=== PATIENT | female | born 1935 | race Caucasian/White ===

== ENCOUNTER 2016-12-20 00:31 | Inpatient (IN) | payer MEDICARE, OTHER ==
[~2016-12-20] VITALS: Ht 149.9 cm; Wt 48.3 kg
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
--- NOTE | ~2016-12-20 | DS ---
Discharge Summary [id number] [facility] [place]. [address] NAME: TATA LOZANO : 37 STATUS : DIS IN PAT#: [id number] AGE: 81 ADM/REG DATE : 12/20/16 MR#: [id number] REPORT SERV DATE: 12/26/16 DICTATED BY: HILDA BANKS DATE: 12/25/16 REPORT STATUS : Draft TRANSCRIBED BY: FRANCISCO DATE: 12/25/16 ADMISSION DATE: 12/20/2016 DISCHARGE DATE: 12/25/2016 DIAGNOSES: 1. Acute encephalopathy, resolved. 2. Parkinson's exacerbation, resolved. 3. Dehydration. 4. Hyponatremia. 5. Acute left lower extremity deep venous thrombosis. 6. Dysphagia. 7. Aspiration pneumonitis. 8. Hypertension. FOLLOWUP: 1. The patient will be followed with home health and to have INR levels on 12/27/2016 and 12/29/2016, to be sent to her primary care's office and then INR q. week thereafter. Her goal INR is 2 to 3. Also, the patient is to follow up with her primary care, Dr. Cavazos, in [place] in one week for her acute DVT. 2. The patient is continue with aspiration precautions. DIET: Pureed diet with honey-thickened liquids. DISCHARGE MEDICATIONS: 1. Xanax 0.5 mg p.o. q.h.s. 2. Sinemet 25/100 one tab p.o. three times a day. 3. Prilosec 20 mg p.o. daily. 4. Paxil 20 mg p.o. daily. 5. Neupro 4 mg topical patch daily. 6. Warfarin 5 mg p.o. daily on Sunday, Sunday, Sunday, Sunday, and Sunday, and 7.5 mg p.o. daily on Sunday and . 7. Albuterol MDI two puffs inhaled q.4 hours p.r.n. 8. Pravachol 40 mg p.o. q.h.s. 9. Percocet 10/25 one-half tab p.o. q.6 hours p.r.n. per home dose. 10.Lasix 40 mg p.o. daily p.r.n. 11.Potassium chloride 10 mEq p.o. daily p.r.n. with Lasix. 12.Ferrous sulfate 300 mg p.o. b.i.d. 13.Zyrtec 10 mg p.o. daily p.r.n. per home dose. 14.Multivitamin p.o. daily. 15.Docusate sodium 100 mg p.o. b.i.d. 16.Imdur ER 30 mg p.o. daily, hold for systolic blood pressure less than 140 and to check blood pressure prior to each dosing. IMAGIN. Venous Doppler ultrasound with a partial occlusive thrombus within the left common femoral vein, proximal and mid left femoral vein, left popliteal vein, as well as one Discharge Summary [address] [place]. [address] NAME: TATA LOZANO : 37 STATUS : DIS IN PAT#: [id number] AGE: 81 ADM/REG DATE : 12/20/16 MR#: [id number] REPORT SERV DATE: 12/26/16 DICTATED BY: HILDA BANKS DATE: 12/25/16 REPORT STATUS : Draft TRANSCRIBED BY: FRANCISCO DATE: 12/25/16 of the left peroneal veins of the proximal left calf. Findings likely represent acute on chronic thrombus given the appearance. There is no right lower extremity venous thrombus appreciated. 2. CT of the brain without contrast showing stable moderate atrophy. Evidence for old deep white matter ischemic changes. No acute infarct nor bleed seen. There is a small bubble of air along the lateral aspect of the right orbit identified adjacent to the ciliary body probably a benign trapped bubble of air. 3. Venous Doppler ultrasound of the right upper extremity negative for DVT. HOSPITAL COURSE: Please see H and P dictated by Dr. Pamela Noble. This is an 81-year-old female with a past medical history of dementia and advanced Parkinson's and hypertension, recently discharged from the hospital on 12/14/2016, for which the patient had a post- mechanical fall at home and had an acute left hip fracture at that time and required surgery and [facility]. However, while at the rehab, according to the daughter, the rehab facility missed some of the patient's Parkinson's medications and the daughter noted changes in her mother's clinical response and became more unresponsive, not eating and drinking well and less alert, also the patient eventually spiked a fever of 101, and the patient was transferred to [facility] ER for altered mental status, dehydration, and possible aspiration pneumonia versus pneumonitis. She was initiated on IV antibiotics, and her Parkinson's medications were re-initiated with high risk aspiration precautions. She was seen by Speech Therapy who recommended a pureed diet and honey-thickened liquids for which the patient had tolerated. She was treated for aspiration pneumonitis. Her chest x-rays did not reveal any pneumonia. Also, blood cultures were no growth to date at the time of discharge. Also, due to asymmetric edema, the patient had a venous Doppler ultrasound ordered with findings of acute DVT of the left lower extremity. She was continued on heparin and her Coumadin also was continued. At the time of discharge, INR was at 2.9. The daughter was updated daily and fully aware of the patient's management as well as the recommendations for home. Also, the daughter states that she did not want the patient to be discharged to a rehab facility, but to be discharged back to home with Home Health and also the family will take care of the patient 30/10. At the time of discharge, the patient was back at her baseline functional capacity, alert, responsive, and conversating. She was discharged to home in stable condition to follow up as an outpatient. Please note, the daughter was educated that the patient will require INR management as an outpatient by her primary care indication. This discharge required greater than 30 minutes. [facility]/FRANCISCO Hilda Banks M.D. / [id number] Discharge Summary [address] [address] NAME: TATA LOZANO : 37 STATUS : DIS IN PAT#: [id number] AGE: 81 ADM/REG DATE : 12/20/16 MR#: [id number] REPORT SERV DATE: 12/26/16 DICTATED BY: HILDA BANKS DATE: 12/25/16 REPORT STATUS : Draft TRANSCRIBED BY: FRANCISCO DATE: 12/25/16 CC: Emanuel Alicia HAK SOK
[~2016-12-20 00:31] MED LIST: AMB10 PO; ENDOCET1 TA3 PO; IRON PO; L40 PO; MICRO-K10 MEQ PO; NEUPRO1 EAC1 TOP; NITROQUICK0.4 MG SL; PAX10 PO; PR25 PO; PRAVACHOL40 MG PO; PRILO PO; PROAIR HFA INH; SIN25 PO; X25 PO; ZYRTEC ALLGY10 MG PO
[2016-12-20 07:21] LABS: CREATININE 1.03 MG/DL (0.55-1.02); GFR AFRICAN AMERICAN 59 ML/MIN (>=60); GFR NON AFRICAN AMERICAN 51 ML/MIN (>=60)
[2016-12-20 07:43] LABS: PROCALCITONIN <0.05 ng/mL (<0.5)
[2016-12-20 11:45] LABS: BASOPHILS 0.2 %; BASOPHILS ABSOLUTE 0.02 10/3/uL (0.0-0.16); EOSINOPHILS 0 %; HEMOGLOBIN 11.4 g/dL (12.0-16.0); IMMATURE GRANULOCYTES 0.5 %; IMMATURE GRANULOCYTES ABSOLUTE 0.05 10/3/uL (0.0-0.11); LYMPHOCYTES 14.5 %; LYMPHOCYTES ABSOLUTE 1.58 10/3/uL (0.67-4.30); MEAN CORPUS HGB CONC 31.7 g/dL (32.0-36.0); MEAN CORPUSCULAR HEMOGLOB 30.9 pg (26.0-34.0); MEAN PLATELET VOLUME 8.9 fL (9.2-13.0); MONOCYTES 4.8 %; MONOCYTES ABSOLUTE 0.52 10/3/uL (0.21-1.20); RBC DISTRIBUTION WIDTH 14.2 % (12.0-16.0); RED CELL COUNT 3.69 10/6/uL (4.0-5.6); WHITE BLOOD CELLS 10.9 10/3/uL (4.5-10.5)
[2016-12-20 11:46] LABS: MANUAL DIFF NO %; MEAN CORPUSCULAR VOLUME 97.6 fL (80-100); PLATELET COUNT 286 10/3/uL (150-400)
[2016-12-20 11:58] LABS: CHLORIDE, SERUM 119 MMOL/L (96-112); CO2 (CARBON DIOXIDE) 22 MMOL/L (24-34); GFR AFRICAN AMERICAN 70 ML/MIN (>=60); GFR NON AFRICAN AMERICAN 60 ML/MIN (>=60); POTASSIUM, SERUM 3.6 MMOL/L (3.5-5.3); SGOT(AST) 17 U/L (5-40); SGPT(ALT) 22 U/L (5-65); TOTAL BILIRUBIN 0.4 MG/DL (0-1.2); TOTAL PROTEIN 6.1 G/DL (6.0-8.5)
[2016-12-20 11:59] LABS: A/G RATIO 0.8 (0.7-1.9); ALBUMIN 2.7 G/DL (3.5-5.0); ALKALINE PHOSPHATASE 50 U/L (45-117); BUN (BLOOD UREA NITROGEN) 46 MG/DL (6-23); GLOBULIN 3.4 G/DL (2.5-4.1); GLUCOSE, SERUM 203 MG/DL (60-99); SODIUM, SERUM 150 MMOL/L (135-148)
[2016-12-20] MEDS ORDERED: PAX10 PO (14:14)
[2016-12-20] MEDS ORDERED: PRAVACHOL40 MG PO (14:15)
[2016-12-20] MEDS ORDERED: C5 PO (14:16)
[2016-12-20] MEDS ORDERED: SIN25 PO (14:17)
[2016-12-20] MEDS ORDERED: ROTIGOTINE TOP (14:19)
[2016-12-20] MEDS ORDERED: NITROSTAT0.4 MG SL (14:19)
[2016-12-20] MEDS ORDERED: PERCOCET 10/3251 TAB PO (14:21)
[2016-12-20] MEDS ORDERED: L40 PO (14:22)
[2016-12-20] MEDS ORDERED: PROVHFA INH (14:22)
[2016-12-20] MEDS ORDERED: COUMADIN7.5 MG PO (14:35)
[2016-12-20] MEDS ORDERED: KDUR10 PO (14:51)
[2016-12-20] MEDS ORDERED: FESO4 PO (14:51)
[2016-12-20] MEDS ORDERED: CENTRUM PO (14:52)
[2016-12-20] MEDS ORDERED: ZYRTEC ALLGY10 MG PO (14:52)
[2016-12-20] MEDS ORDERED: X25 PO (14:52)
[2016-12-20] MEDS ORDERED: PRILO PO (14:53)
[2016-12-20] MEDS ORDERED: D.O.S.100 MG PO (14:53)
[2016-12-20 18:11] LABS: INFLUENZA A SCREEN NEGATIVE (NEGATIVE); INFLUENZA B SCREEN NEGATIVE (NEGATIVE)
[2016-12-20 19:01] LABS: INTERNATIONAL NORMAL RATI 2.4 UNITS (-); PARTIAL THROMBO TIME 34.5 SEC (22.5-37.2)
[2016-12-20 19:02] LABS: PROTIME (NOT ORD) 25.9 SEC (12.0-14.5)
[2016-12-21 06:53] LABS: BASOPHILS 0.3 %; BASOPHILS ABSOLUTE 0.03 10/3/uL (0.0-0.16); EOSINOPHILS 0.6 %; EOSINOPHILS ABSOLUTE 0.06 10/3/uL (0.0-0.53); HEMOGLOBIN 9.7 g/dL (12.0-16.0); IMMATURE GRANULOCYTES 0.5 %; IMMATURE GRANULOCYTES ABSOLUTE 0.05 10/3/uL (0.0-0.11); INTERNATIONAL NORMAL RATI 1.9 UNITS (-); LYMPHOCYTES 25.5 %; LYMPHOCYTES ABSOLUTE 2.68 10/3/uL (0.67-4.30); MEAN CORPUS HGB CONC 32.1 g/dL (32.0-36.0); MEAN CORPUSCULAR HEMOGLOB 31.3 pg (26.0-34.0); MEAN CORPUSCULAR VOLUME 97.4 fL (80-100); MEAN PLATELET VOLUME 9.1 fL (9.2-13.0); MONOCYTES 6.3 %; MONOCYTES ABSOLUTE 0.66 10/3/uL (0.21-1.20); NEUTROPHILS 66.8 %; NEUTROPHILS ABSOLUTE 7.05 10/3/uL (2.02-8.40); PLATELET COUNT 241 10/3/uL (150-400); RBC DISTRIBUTION WIDTH 14.2 % (12.0-16.0); WHITE BLOOD CELLS 10.5 10/3/uL (4.5-10.5)
[2016-12-21 06:54] LABS: HEMATOCRIT 30.2 % (36.0-48.0); MANUAL DIFF NO %; PROTIME (NOT ORD) 21.9 SEC (12.0-14.5)
[2016-12-21 07:03] LABS: A/G RATIO 0.8 (0.7-1.9); ALBUMIN 2.3 G/DL (3.5-5.0); ALKALINE PHOSPHATASE 41 U/L (45-117); BUN (BLOOD UREA NITROGEN) 33 MG/DL (6-23); CALCIUM, SERUM 8.7 MG/DL (8.5-10.4); CHLORIDE, SERUM 116 MMOL/L (96-112); CO2 (CARBON DIOXIDE) 23 MMOL/L (24-34); CREATININE 0.86 MG/DL (0.55-1.02); GFR AFRICAN AMERICAN 74 ML/MIN (>=60); GFR NON AFRICAN AMERICAN 64 ML/MIN (>=60); GLOBULIN 2.8 G/DL (2.5-4.1); GLUCOSE, SERUM 131 MG/DL (60-99); PHOSPHORUS, SERUM 2.8 MG/DL (2.5-4.5); POTASSIUM, SERUM 3.3 MMOL/L (3.5-5.3); SGOT(AST) 16 U/L (5-40); SGPT(ALT) 14 U/L (5-65); SODIUM, SERUM 147 MMOL/L (135-148); TOTAL BILIRUBIN 0.5 MG/DL (0-1.2); TOTAL PROTEIN 5.1 G/DL (6.0-8.5)
[2016-12-21 08:45] LABS: ASCORBIC ACID (UR NOT ORDER) NEG (NEG); BILIRUBIN, URINE NEGATIVE (NEG); KETONE, URINE NEGATIVE (NEG); LEUKOCYTE ESTERASE(NOT OR NEG (NEG); WBC (NOT ORDERED) (RFLEX) 1 (0-5)
[2016-12-22 06:23] LABS: INTERNATIONAL NORMAL RATI 1.9 UNITS (-); PROTIME (NOT ORD) 21.2 SEC (12.0-14.5)
[2016-12-22 06:29] LABS: BUN (BLOOD UREA NITROGEN) 17 MG/DL (6-23); CALCIUM, SERUM 8.3 MG/DL (8.5-10.4); CHLORIDE, SERUM 111 MMOL/L (96-112); CO2 (CARBON DIOXIDE) 24 MMOL/L (24-34); CREATININE 0.69 MG/DL (0.55-1.02); GFR AFRICAN AMERICAN 95 ML/MIN (>=60); GFR NON AFRICAN AMERICAN 82 ML/MIN (>=60); GLUCOSE, SERUM 136 MG/DL (60-99); POTASSIUM, SERUM 3.3 MMOL/L (3.5-5.3); SODIUM, SERUM 143 MMOL/L (135-148)
[2016-12-22 06:35] LABS: PARTIAL THROMBO TIME > 150.0 SEC (22.5-37.2)
[2016-12-22 16:16] LABS: CPK 38 U/L (0-200); TROPONIN I 0.03 NG/ML (<0.05)
[2016-12-22 22:03] LABS: CPK 52 U/L (0-200); TROPONIN I 0.02 NG/ML (<0.05)
[2016-12-23 05:39] LABS: BASOPHILS 0.2 %; BASOPHILS ABSOLUTE 0.02 10/3/uL (0.0-0.16); EOSINOPHILS 1.7 %; EOSINOPHILS ABSOLUTE 0.19 10/3/uL (0.0-0.53); HEMATOCRIT 30.4 % (36.0-48.0); IMMATURE GRANULOCYTES 0.6 %; IMMATURE GRANULOCYTES ABSOLUTE 0.07 10/3/uL (0.0-0.11); LYMPHOCYTES 20.2 %; LYMPHOCYTES ABSOLUTE 2.23 10/3/uL (0.67-4.30); MEAN CORPUS HGB CONC 32.9 g/dL (32.0-36.0); MEAN CORPUSCULAR HEMOGLOB 30.8 pg (26.0-34.0); MEAN PLATELET VOLUME 9.3 fL (9.2-13.0); MONOCYTES 4.3 %; MONOCYTES ABSOLUTE 0.48 10/3/uL (0.21-1.20); NEUTROPHILS ABSOLUTE 8.07 10/3/uL (2.02-8.40); PLATELET COUNT 240 10/3/uL (150-400); RED CELL COUNT 3.25 10/6/uL (4.0-5.6); WHITE BLOOD CELLS 11.1 10/3/uL (4.5-10.5)
[2016-12-23 05:42] LABS: MANUAL DIFF NO %; MEAN CORPUSCULAR VOLUME 93.5 fL (80-100)
[2016-12-23 05:44] LABS: INTERNATIONAL NORMAL RATI 1.9 UNITS (-); PROTIME (NOT ORD) 21.3 SEC (12.0-14.5)
[2016-12-23 05:50] LABS: BUN (BLOOD UREA NITROGEN) 14 MG/DL (6-23); CALCIUM, SERUM 8.6 MG/DL (8.5-10.4); CHLORIDE, SERUM 111 MMOL/L (96-112); CO2 (CARBON DIOXIDE) 28 MMOL/L (24-34); CREATININE 0.84 MG/DL (0.55-1.02); GFR AFRICAN AMERICAN 76 ML/MIN (>=60); GFR NON AFRICAN AMERICAN 66 ML/MIN (>=60); GLUCOSE, SERUM 119 MG/DL (60-99); POTASSIUM, SERUM 3.8 MMOL/L (3.5-5.3); SODIUM, SERUM 143 MMOL/L (135-148)
[2016-12-24 07:01] LABS: INTERNATIONAL NORMAL RATI 3.2 UNITS (-)
[2016-12-24 07:02] LABS: PARTIAL THROMBO TIME 92.7 SEC (22.5-37.2)
[2016-12-24 07:03] LABS: PROTIME (NOT ORD) 32.1 SEC (12.0-14.5)
[2016-12-25 05:39] LABS: INTERNATIONAL NORMAL RATI 2.9 UNITS (-); PROTIME (NOT ORD) 30.1 SEC (12.0-14.5)
[2016-12-25] MEDS ORDERED: X25 PO (11:52)
[2016-12-25] MEDS ORDERED: SIN25 PO (11:53)
[2016-12-25] MEDS ORDERED: PAX20 PO (11:54)
[2016-12-25] MEDS ORDERED: ROTIGOTINE EX (11:57)
[2016-12-25] MEDS ORDERED: C5 PO (12:00)
[2016-12-25] MEDS ORDERED: COUMADIN7.5 MG PO ×2 (12:04→12:05)
[2016-12-25] MEDS ORDERED: PERCOCET 10/3251 TAB PO (12:09)
[2016-12-25] MEDS ORDERED: K-TABS10 MEQ PO (12:11)
[2016-12-25] MEDS ORDERED: ZYRTEC ALLGY10 MG PO (12:12)
[2016-12-25] MEDS ORDERED: IMDUR30 PO (15:22)
== END 2016-12-25 16:42 | disposition home health service (06) | DRG 177 ==
LOC: ENRESERV → ENRESERVTM → ENRESERVDT → 1SO 02:37
PROVIDERS: Internal Medicine
DX: J69.0 Pneumonitis due to inhalation of food and vomit (principal); G93.40 Encephalopathy, unspecified; I82.4Z2 Acute embolism and thrombosis of unspecified deep veins of left distal lower extremity; E87.1 Hypo-osmolality and hyponatremia; Z66 Do not resuscitate; G20 Parkinson's disease; R13.10 Dysphagia, unspecified; M47.9 Spondylosis, unspecified; F02.80 Dementia in other diseases classified elsewhere, unspecified severity, without behavioral disturbance, psychotic disturbance, mood disturbance, and anxiety; M19.042 Primary osteoarthritis, left hand; J44.9 Chronic obstructive pulmonary disease, unspecified; E86.0 Dehydration; I10 Essential (primary) hypertension; E78.5 Hyperlipidemia, unspecified; M19.041 Primary osteoarthritis, right hand; I25.10 Atherosclerotic heart disease of native coronary artery without angina pectoris; Z79.01 Long term (current) use of anticoagulants; Z79.891 Long term (current) use of opiate analgesic; Z79.899 Other long term (current) drug therapy; Z87.891 Personal history of nicotine dependence; Z98.61 Coronary angioplasty status
CPT/HCPCS: 70450; 71010; 80048; 80053; 81001; 82550; 82553; 82565; 83605; 83735; 84100; 84145; 84484; 85025; 85610; 85730; 87040; 87804; 92610-GN; 93005; 93970; 93971; 94640; 97163-GP; 97530-GP; A9270-GY; C9113; G8978-CL-GP; G8979-CL-GP; G8996-CK-GN; G8997-CK-GN; G8998-CK-GN; J0360; J2543; J3370